=== PATIENT | female | born 2000 | race Caucasian/White ===

== ENCOUNTER 2022-07-28 18:43 | Emergency (ER) | payer OTHER, SELFPAY ==
[2022-07-28 18:52] VITALS: BP 133/78; PULSE 92; RESP 18; TEMP 36.6; O2SAT 99; BMI 28.8
[2022-07-28 19:17] LABS: COVID19 -Nasal RAPID Negative (Negative)
--- NOTE | 2022-07-28 19:32 | ED_ITS ---
HPI - Nausea/Vomiting/Diarrhea General Chief complaint: Nausea/Vomiting/Diarrhea Stated complaint: Fatigue, Nausea, Lightheaded, SOB, 2 days Time Seen by Provider: 07/28/22 19:09 Source: patient Mode of arrival: Ambulatory History of Present Illness HPI Narrative: Patient is an otherwise healthy 22-year-old female who is here for evaluation of 2 days of feeling fatigue, nausea but no vomiting, lightheaded, occasional shortness of breath. She did take a couple home tests and they were negative. She denies any chest pain, cough, sore throat, abdominal pain, or urinary symptoms. No skin changes. No ear pain. Has not tried anything for symptoms prior to arrival. Related Data Home Medications Medication Instructions Recorded Confirmed norethindrone acetate 0.5 1 tab PO DAILY 07/28/22 07/28/22 mg-ethinyl estradiol 2.5 mcg tablet Allergies Allergy/AdvReac Type Severity Reaction Status Date / Time No Known Drug Allergies Allergy Verified 07/28/22 18:58 Review of Systems Constitutional Constitutional: Denies fever(s) and Denies headache(s) ENT Ears, Nose, Mouth, and Throat: Reports system reviewed and no additional complaints, except as documented and Denies headache(s) Cardiovascular Cardiovascular: Reports system reviewed and no additional complaints, except as documented Respiratory Respiratory: Reports system reviewed and no additional complaints, except as documented Gastrointestinal Gastrointestinal: Reports system reviewed and no additional complaints, except as documented Genitourinary Genitourinary: Reports system reviewed and no additional complaints, except as d ocumented Integumentary/Breasts Skin/Breast: Reports system reviewed and no additional complaints, except as documented Neurologic Neurologic: Denies headache(s) Hematologic/Lymphatic On Anticoagulants: No Patient History Medical History Healthy adult Social History Smoking Status: Never smoker Smoking Status: Never smoker alcohol intake frequency: holidays/special occasions only Substance Use Type: does not use Exam Initial Vital Signs Initial Vital Signs: Vital Signs Temperature 98 F 07/28/22 18:52 Pulse Rate 92 H 07/28/22 18:52 Respiratory Rate 18 07/28/22 18:52 Blood Pressure 133/78 07/28/22 18:52 Pulse Oximetry 99 07/28/22 18:52 Oxygen Delivery Method 07/28/22 18:52 Const General: cooperative and comfortable HENMT Head: normal to inspection and normocephalic Ears: TM's normal bilaterally Throat: posterior oropharynx normal Neck Neck: normal visual inspection Resp Effort & Inspection: normal respiratory effort Auscultation: clear to auscultation bilaterally Cardio Rate: regular rate Rhythm: regular rhythm GI Inspection: normal to inspection Skin General: no rashes or lesions noted Neuro General: patient alert, patient awake, patient oriented x3 and moves all extremities Extrem General: normal to inspection Psych Appearance: grossly normal and well kempt Course Orders Ordered: ED Orders 07/28/22 18:59 COVID19 -Nasal RAPID/Pre-Proc Stat Vital Signs Vital signs: Vital Signs - 8 hr 07/28/22 18:52 Temperature 98 F Pulse Rate 92 H Respiratory Rate 18 Blood Pressure 133/78 Pulse Oximetry 99 Oxygen Delivery Method Room Air MDM - Nausea/Vomiting/Diarrhea Lab Data Labs: Lab Results 07/28/22 Range/Units 18:59 SARS-CoV-2 (PCR) Negative (Negative) MDM Narrative Medical decision making narrative: Patient is nontoxic appearing. COVID is negative. No other specific source of an infection noted. No indication for antibiotics. Provided reassurance to the patient. She was given return precautions. She expressed understanding. Discharge Plan Departure Patient Disposition: Home Clinical Impression: Fatigue Instructions: DI for Fatigue Activity Restrictions/Additional Instructions: Your COVID test today was negative. I do not have any indication of another type of an infection that would require any antibiotics. Recommend that you get good rest and eat and drink appropriately. Follow-up with your medical department. Prescriptions: No Action norethindrone ac-eth estradiol 0.5-2.5 mg-mcg Tablet 1 tab PO DAILY Referrals: ProviderGerardo [Primary Care Provider] - Visit Report Forms: Patient Portal/API
== END 2022-07-28 20:09 | disposition home or self-care (01) ==
PROVIDERS: Emergency Provider Emergency Medicine
DX: R53.83 Other fatigue (principal); Z20.822 Contact with and (suspected) exposure to COVID-19
CPT/HCPCS: 87635; 99281; 99282; C9803

== ENCOUNTER 2023-01-29 18:42 | Emergency (ER) | payer OTHER, SELFPAY ==
[2023-01-29] VITALS (8 sets, daily range): BP systolic 118–138; BP diastolic 57–79; PULSE 93–110; RESP 16; TEMP 38.4; O2SAT 96–98; BMI 28.8
--- NOTE | 2023-01-29 19:57 | DI.RAD.S_ITS ---
PROCEDURE: XR CHEST 1V INDICATIONS: suspected sepsis TECHNIQUE: One view of the chest was acquired. COMPARISON: None. FINDINGS: Surgical changes and devices: None. Lungs and pleura: Lungs are clear. No pleural effusions or pneumothorax. Mediastinum: Mediastinal contours appear normal. Heart size is normal. Bones and chest wall: No suspicious bony lesions. Overlying soft tissues appear unremarkable. IMPRESSION: 1. No acute cardiopulmonary disease. Dictated by: Rony Colón M.D. on 01/29/2023 at 20:50 Approved by: Rony Colón M.D. on 01/29/2023 at 20:50
[2023-01-29 20:44] LABS: Appearance Urine UA CLEAR; Bilirubin Urine UA NEGATIVE (NEGATIVE); Color Urine UA YELLOW; Glucose Urine UA NEGATIVE (Negative); Ketones Urine UA NEGATIVE (NEGATIVE); Leukocyte Esterase Urine UA NEGATIVE (NEGATIVE); Nitrite Urine UA NEGATIVE (Negative); Occult Blood Urine UA 3+ (Negative); Protein Urine UA 1+ (Negative); Specific Gravity Urine UA 1.025 (1.000-1.035)
[2023-01-29 20:51] LABS: INR 1.2 (0.9-1.3); Prothrombin Time 13.8 SECONDS (10.1-12.7)
[2023-01-29 20:54] LABS: PTT Partial Thromboplastin Tim 28 SECONDS (26-36)
[2023-01-29 20:58] LABS: Bacteria Urine Many (>30); Culture Indicated Urine Specimen Cultured; Mucus Urine 1+ (Negative); RBC Urine 5-10/HPF (0-5/HPF); Squamous Epithelial Cell Urine 1-5 /HPF (0-5/HPF); Transitional Epi Cells Urine 1-5/HPF (0-5/HPF); WBC Urine 5-10/HPF (0-5/HPF)
[2023-01-29 21:01] LABS: Add Manual Diff / Slide Review NO; Basophils Absolute Auto 0 /uL (0-100); Basophils Percent Auto 0.4 % (0-2); Eosinophils Absolute Auto 0 /uL (0-450); Eosinophils Percent Auto 0.3 % (2-4); Hematocrit 40.8 % (36-46); Hemoglobin 13.7 g/dL (12.0-16.0); Lymphocytes Absolute Auto 1000 /uL (1100-4500); Lymphocytes Percent Auto 7.5 % (25-40); Mean Corpuscular HGB Conc 33.4 % (30-36); Mean Corpuscular Hemoglobin 28.3 PG (26-34); Mean Corpuscular Volume 84.7 fL (80-100); Monocytes Absolute Auto 800 /uL (0-900); Monocytes Percent Auto 6.4 % (3-14); Neutrophils Absolute Auto 10900 /uL (1500-7000); Neutrophils Percent Auto 85.4 % (50-75); Platelet Count 214 X10^3/uL (150-400); Red Blood Cell Count 4.82 X10^6/uL (4.0-5.2); White Blood Cell Count 12.7 X10^3/uL (4.5-11.0)
[2023-01-29 21:11] LABS: Lactate (Lactic Acid) 1.1 mmol/L (0.7-2.1)
[2023-01-29 21:13] LABS: Alanine Aminotransferase 21 IU/L (<35); Albumin 4.7 g/dL (3.5-5.0); Albumin Globulin Ratio 1.4 (1.0-2.8); Alkaline Phosphatase 89 U/L (38-126); Aspartate Aminotransferase 24 IU/L (14-36); BUN Creatinine Ratio 12.7 (6-22); Bilirubin Total 0.6 mg/dL (0.2-1.3); Blood Urea Nitrogen 9 mg/dL (7-17); Calcium 8.9 mg/dL (8.4-10.2); Carbon Dioxide 22 mmol/L (22-32); Chloride 103 mmol/L (98-107); Estimated Glomerular Filt Rate > 60 mL/min (>60); Globulin 3.4 g/dL (1.7-4.1); Glucose 105 mg/dL (70-100); HEMOLYSIS < 15 (0-50); Lipase 65 U/L (23-300); Potassium 3.6 mmol/L (3.4-5.1); Sodium 137 mmol/L (137-145); Total Protein 8.1 g/dL (6.3-8.2)
[2023-01-29 21:28] LABS: Procalcitonin 0.19 ng/mL (<0.5)
[2023-01-29] MEDS: SODIUM CHLORIDE 0.9% 1,000 ML 1000 ML IV (21:57)
[2023-01-29] MEDS: ACETAMINOPHEN 325 MG TABLET 975 MG PO (22:36)
[2023-01-29] MEDS: IBUPROFEN 400 MG TABLET 800 MG PO (22:37)
--- NOTE | 2023-01-29 22:42 | DI.CT.S_ITS ---
PROCEDURE: CT ABDOMEN PELVIS W CON INDICATIONS: Generalized abdominal pain worse in right lower quadrant. TECHNIQUE: After the administration of IV contrast, axial sections were acquired from the lung bases to the pubic symphysis. Coronal and sagittal reformats were performed. For radiation dose reduction, the following was used: automated exposure control, adjustment of mA and/or kV according to patient size. COMPARISON: None. FINDINGS: Image quality: Excellent. Lung bases: Unremarkable. Heart: Heart is normal in size. ABDOMEN: Liver: No mass lesion. Gallbladder: Within normal limits without calcified gallstones. Biliary ducts: No biliary ductal dilatation. Pancreas: Unremarkable. Spleen: Normal in size. Adrenal Glands: No adrenal nodules. Kidneys and Ureters: No hydronephrosis. Stomach and Bowel: Stomach and small bowel loops are normal in caliber and wall thickness. The appendix is normal. There is mild segmental wall thickening of the ascending colon with associated pericolonic fat stranding consistent with a colitis. Peritoneum: There is a small amount of intraperitoneal free fluid in the pelvis which appears within physiologic limits. No free air. Ventral Wall: No hernia. Abdominal Nodes: No retroperitoneal or mesenteric adenopathy by size criteria. Vessels: Aorta and inferior vena cava are normal in size. PELVIS: Pelvic Organs: Unremarkable. Bladder: Unremarkable. Pelvic Nodes: No enlarged lymph nodes. Miscellaneous: No inguinal hernias are seen. Bones: Visualized osseous structures demonstrate no suspicious focal lesions. IMPRESSION: 1. Mild segmental wall thickening of the ascending colon with pericolonic fat stranding consistent with an infectious or inflammatory colitis. 2. No evidence of appendicitis. Dictated by: Rony Colón M.D. on 01/29/2023 at 23:52 Approved by: Rony Colón M.D. on 01/29/2023 at 23:54
--- NOTE | 2023-01-29 22:42 | ED.GENADULT ---
HPI - General Adult General Chief complaint: Fever Stated complaint: Abd pain, body aches, vomiting Diarrhea Time Seen by Provider: 01/29/23 21:58 Source: patient Mode of arrival: Ambulatory History of Present Illness HPI narrative: Patient is a 22-year-old female who for the past day or so has had abdominal pain and body aches and vomiting. She stated that she had diarrhea today. No urinary symptoms. 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 No other sick contacts. She states that after having an episode of diarrhea the abdominal pain did improve but then would come back again. Related Data Home Medications Medication Instructions Recorded Confirmed norethindrone acetate 0.5 1 tab PO DAILY 07/28/22 07/28/22 mg-ethinyl estradiol 2.5 mcg tablet Allergies Allergy/AdvReac Type Severity Reaction Status Date / Time No Known Drug Allergies Allergy Verified 07/28/22 18:58 Review of Systems Constitutional Constitutional: Reports system reviewed and no additional complaints, except as documented Cardiovascular Cardiovascular: Reports system reviewed and no additional complaints, except as documented Respiratory Respiratory: Reports system reviewed and no additional complaints, except as documented Gastrointestinal Gastrointestinal: Reports system reviewed and no additional complaints, except as documented Genitourinary Genitourinary: Reports system reviewed and no additional complaints, except as documented Integumentary/Breasts Skin/Breast: Reports system reviewed and no additional complaints, except as documented Patient History Medical History Healthy adult Social History Smoking Status: Never smoker Smoking Status: Never smoker alcohol intake frequency: holidays/special occasions only Substance Use Type: does not use Exam Initial Vital Signs Initial Vital Signs: Vital Signs Temperature 101.2 F H 01/29/23 19:51 Pulse Rate 110 H 01/29/23 19:51 Respiratory Rate 16 01/29/23 19:51 Blood Pressure 138/79 01/29/23 19:51 Pulse Oximetry 98 01/29/23 19:51 Oxygen Delivery Method Room Air 01/29/23 19:51 Course Orders Ordered: ED Orders 01/29/23 20:25 Complete Blood Count AUTO DIFF Stat Comprehensive Metabolic Panel Stat Lactate (Lactic Acid) Stat Lipase Stat PTT Partial Thromboplastin [place] Stat Procalcitonin Stat Prothrombin Time INR Stat 01/29/23 20:30 Respiratory Panel (Film Array) Stat 01/29/23 20:50 Test Urine Stat 01/29/23 21:10 Blood Culture Stat 01/29/23 22:42 CT abdomen pelvis w con Stat Discontinued Medications Acetaminophen (Acetaminophen 325 Mg Tablet) 975 mg PO NOW ONE Stop: 01/29/23 21:14 Last Admin: 01/29/23 22:36 Dose: 975 mg Documented By: SPF Sodium Chloride (Normal Saline 0.9%) 1,000 mls @ 1,000 mls/hr IV BOLUS ONE Stop: 01/29/23 20:55 Last Infusion: 01/29/23 23:43 Dose: 0 mls/hr Documented By: Admin: 01/29/23 21:57 Dose: 1,000 mls/hr Documented By: KAI Ibuprofen (Ibuprofen 400 Mg Tablet) 800 mg PO NOW ONE Stop: 01/29/23 21:14 Last Admin: 01/29/23 22:37 Dose: 800 mg Documented By: SPF Ondansetron HCl (Ondansetron 4 Mg Odt) 4 mg SL NOW PRN PRN Reason: Nausea And Vomiting Ondansetron HCl (Ondansetron 4 Mg/2 Ml Inj) 4 mg IV NOW PRN PRN Reason: Nausea And Vomiting Ondansetron HCl (Ondansetron 4 Mg Odt Prepack) 1 bottle MISC SEEINSTR ONE Stop: 01/30/23 00:06 Last Admin: 01/30/23 00:13 Dose: 1 bottle Documented By: ABRANM Vital Signs Vital signs: Vital Signs - 8 hr 01/29/23 21:49 01/29/23 22:00 01/29/23 22:14 Pulse Rate 106 H 101 H Blood Pressure 125/58 L Pulse Oximetry 98 96 Oxygen Delivery Method 01/29/23 22:14 01/29/23 22:30 01/29/23 23:00 Pulse Rate 100 H 99 H Blood Pressure 120/60 Pulse Oximetry 96 96 Oxygen Delivery Method Room Air 01/29/23 23:00 01/29/23 23:22 01/29/23 23:22 Pulse Rate 103 H 102 H Blood Pressure 119/62 Pulse Oximetry 97 97 Oxygen Delivery Method 01/29/23 23:30 01/29/23 23:30 01/30/23 00:00 Pulse Rate 93 H Blood Pressure 118/57 L 112/55 L Pulse Oximetry 97 Oxygen Delivery Method 01/30/23 00:00 Pulse Rate 97 H Blood Pressure Pulse Oximetry 97 Oxygen Delivery Method Medical Decision Making Lab Data Lab results reviewed: Yes I reviewed the patient's lab results. 01/29/23 20:25 01/29/23 20:25 Labs: Lab Results 01/29/23 01/29/23 01/29/23 Range/Units 20:00 20:25 20:25 WBC 12.7 H (4.5-11.0) X10^3/uL RBC 4.82 (4.0-5.2) X10^6/uL Hgb 13.7 (12.0-16.0) g/dL Hct 40.8 (36-46) % MCV 84.7 (80-100) fL MCH 28.3 (26-34) PG MCHC 33.4 (30-36) % RDW 14.0 (11.6-14.8) % Plt Count 214 (150-400) X10^3/uL Neut % (Auto) 85.4 H (50-75) % Lymph % (Auto) 7.5 L (25-40) % Logan % (Auto) 6.4 (3-14) % Eos % (Auto) 0.3 L (2-4) % Baso % (Auto) 0.4 (0-2) % Neut # (Auto) 72250 H (0801-1449) /uL Lymph # (Auto) 1000 L (9434-0941) /uL Logan # (Auto) 800 (0-900) /uL Eos # (Auto) 0 (0-450) /uL Baso # (Auto) 0 (0-100) /uL PT 13.8 H (10.1-12.7) SECONDS INR 1.2 (0.9-1.3) APTT 28 (26-36) SECONDS Sodium (137-145) mmol/L Potassium (3.4-5.1) mmol/L Chloride (98-107) mmol/L Carbon Dioxide (22-32) mmol/L BUN (7-17) mg/dL Creatinine (0.52-1.04) mg/dL Estimated GFR (>60) mL/min BUN/Creatinine Ratio (6-22) Glucose (70-100) mg/dL Lactate (0.7-2.1) mmol/L Calcium (8.4-10.2) mg/dL Total Bilirubin (0.2-1.3) mg/dL AST (14-36) IU/L ALT (<35) IU/L Alkaline Phosphatase (38-126) U/L Total Protein (6.3-8.2) g/dL Albumin (3.5-5.0) g/dL Globulin (1.7-4.1) g/dL Albumin/Globulin Ratio (1.0-2.8) Lipase (23-300) U/L Procalcitonin (<0.5) ng/mL Urine Color Yellow Urine Appearance Clear Urine pH 6.0 (4.5-8.0) Ur Specific [place] 1.025 (1.000-1.035) Urine Protein 1+ H (Negative) Urine Glucose (UA) Negative (Negative) g/dL Urine Ketones Negative (NEGATIVE) Urine Occult Blood 3+ H (Negative) Urine Nitrate Negative (Negative) Urine Bilirubin Negative (NEGATIVE) Urine Urobilinogen 1.0 (0.2) E.U./dL Ur Leukocyte Esterase Negative (NEGATIVE) Urine RBC 5-10/hpf H (0-5/HPF) Urine WBC 5-10/hpf H (0-5/HPF) Ur Squamous Epith Cells 1-5 /hpf (0-5/HPF) Ur Transition Epith Cell 1-5/hpf (0-5/HPF) Urine Bacteria Many (>30) H (None) Urine Mucus 1+ H (Negative) Ur Culture Indicated? Specimen cultured Urine Test (Negative) Chlamy pneumoniae PCR (Not Detect) Adenovirus (PCR) (Not Detect) B. pertussis DNA (PCR) (Not Detecte) B.parapertussis DNA PCR (Not Detecte) Coronavirus OC43 (PCR) (Not Detect) Coronavirus HKU1 (PCR) (Not Detect) Coronavirus 229E (PCR) (Not Detect) SARS-CoV-2 (PCR) (Not Detecte) Coronavirus NL63 (PCR) (Not Detect) Human Metapneumovir PCR (Not Detect) Influenza Type A (PCR) (Not Detect) Influenza Type B (PCR) (Not Detect) M. pneumoniae (PCR) (Not Detect) Parainfluenza 1 (PCR) (Not Detect) Parainfluenza 2 (PCR) (Not Detect) Parainfluenza 3 (PCR) (Not Detect) Parainfluenza 4 (PCR) (Not Detect) RSV (PCR) (Not Detect) Entero/Rhino (PCR) (Not Detect) 01/29/23 01/29/23 01/29/23 Range/Units 20:25 20:25 20:30 WBC (4.5-11.0) X10^3/uL RBC (4.0-5.2) X10^6/uL Hgb (12.0-16.0) g/dL Hct (36-46) % MCV (80-100) fL MCH (26-34) PG MCHC (30-36) % RDW (11.6-14.8) % Plt Count (150-400) X10^3/uL Neut % (Auto) (50-75) % Lymph % (Auto) (25-40) % Logan % (Auto) (3-14) % Eos % (Auto) (2-4) % Baso % (Auto) (0-2) % Neut # (Auto) (6367-9864) /uL Lymph # (Auto) (3440-9111) /uL Logan # (Auto) (0-900) /uL Eos # (Auto) (0-450) /uL Baso # (Auto) (0-100) /uL PT (10.1-12.7) SECONDS INR (0.9-1.3) APTT (26-36) SECONDS Sodium 137 (137-145) mmol/L Potassium 3.6 (3.4-5.1) mmol/L Chloride 103 (98-107) mmol/L Carbon Dioxide 22 (22-32) mmol/L BUN 9 (7-17) mg/dL Creatinine 0.71 (0.52-1.04) mg/dL Estimated GFR > 60 (>60) mL/min BUN/Creatinine Ratio 12.7 (6-22) Glucose 105 H (70-100) mg/dL Lactate 1.1 (0.7-2.1) mmol/L Calcium 8.9 (8.4-10.2) mg/dL Total Bilirubin 0.6 (0.2-1.3) mg/dL AST 24 (14-36) IU/L ALT 21 (<35) IU/L Alkaline Phosphatase 89 (38-126) U/L Total Protein 8.1 (6.3-8.2) g/dL Albumin 4.7 (3.5-5.0) g/dL Globulin 3.4 (1.7-4.1) g/dL Albumin/Globulin Ratio 1.4 (1.0-2.8) Lipase 65 (23-300) U/L Procalcitonin 0.19 (<0.5) ng/mL Urine Color Urine Appearance Urine pH (4.5-8.0) Ur Specific [place] (1.000-1.035) Urine Protein (Negative) Urine Glucose (UA) (Negative) g/dL Urine Ketones (NEGATIVE) Urine Occult Blood (Negative) Urine Nitrate (Negative) Urine Bilirubin (NEGATIVE) Urine Urobilinogen (0.2) E.U./dL Ur Leukocyte Esterase (NEGATIVE) Urine RBC (0-5/HPF) Urine WBC (0-5/HPF) Ur Squamous Epith Cells (0-5/HPF) Ur Transition Epith Cell (0-5/HPF) Urine Bacteria (None) Urine Mucus (Negative) Ur Culture Indicated? Urine Test (Negative) Chlamy pneumoniae PCR Not detected (Not Detect) Adenovirus (PCR) Not detected (Not Detect) B. pertussis DNA (PCR) Not detected (Not Detecte) B.parapertussis DNA PCR Not detected (Not Detecte) Coronavirus OC43 (PCR) Not detected (Not Detect) Coronavirus HKU1 (PCR) Not detected (Not Detect) Coronavirus 229E (PCR) Not detected (Not Detect) SARS-CoV-2 (PCR) Not detected (Not Detecte) Coronavirus NL63 (PCR) Not detected (Not Detect) Human Metapneumovir PCR Not detected (Not Detect) Influenza Type A (PCR) Not detected (Not Detect) Influenza Type B (PCR) Not detected (Not Detect) M. pneumoniae (PCR) Not detected (Not Detect) Parainfluenza 1 (PCR) Not detected (Not Detect) Parainfluenza 2 (PCR) Not detected (Not Detect) Parainfluenza 3 (PCR) Not detected (Not Detect) Parainfluenza 4 (PCR) Not detected (Not Detect) RSV (PCR) Not detected (Not Detect) Entero/Rhino (PCR) Not detected (Not Detect) 04/25/23 Range/Units 20:50 WBC (4.5-11.0) X10^3/uL RBC (4.0-5.2) X10^6/uL Hgb (12.0-16.0) g/dL Hct (36-46) % MCV (80-100) fL MCH (26-34) PG MCHC (30-36) % RDW (11.6-14.8) % Plt Count (150-400) X10^3/uL Neut % (Auto) (50-75) % Lymph % (Auto) (25-40) % Logan % (Auto) (3-14) % Eos % (Auto) (2-4) % Baso % (Auto) (0-2) % Neut # (Auto) (7958-1543) /uL Lymph # (Auto) (3386-1954) /uL Logan # (Auto) (0-900) /uL Eos # (Auto) (0-450) /uL Baso # (Auto) (0-100) /uL PT (10.1-12.7) SECONDS INR (0.9-1.3) APTT (26-36) SECONDS Sodium (137-145) mmol/L Potassium (3.4-5.1) mmol/L Chloride (98-107) mmol/L Carbon Dioxide (22-32) mmol/L BUN (7-17) mg/dL Creatinine (0.52-1.04) mg/dL Estimated GFR (>60) mL/min BUN/Creatinine Ratio (6-22) Glucose (70-100) mg/dL Lactate (0.7-2.1) mmol/L Calcium (8.4-10.2) mg/dL Total Bilirubin (0.2-1.3) mg/dL AST (14-36) IU/L ALT (<35) IU/L Alkaline Phosphatase (38-126) U/L Total Protein (6.3-8.2) g/dL Albumin (3.5-5.0) g/dL Globulin (1.7-4.1) g/dL Albumin/Globulin Ratio (1.0-2.8) Lipase (23-300) U/L Procalcitonin (<0.5) ng/mL Urine Color Urine Appearance Urine pH (4.5-8.0) Ur Specific [place] (1.000-1.035) Urine Protein (Negative) Urine Glucose (UA) (Negative) g/dL Urine Ketones (NEGATIVE) Urine Occult Blood (Negative) Urine Nitrate (Negative) Urine Bilirubin (NEGATIVE) Urine Urobilinogen (0.2) E.U./dL Ur Leukocyte Esterase (NEGATIVE) Urine RBC (0-5/HPF) Urine WBC (0-5/HPF) Ur Squamous Epith Cells (0-5/HPF) Ur Transition Epith Cell (0-5/HPF) Urine Bacteria (None) Urine Mucus (Negative) Ur Culture Indicated? Urine Test Negative (Negative) Chlamy pneumoniae PCR (Not Detect) Adenovirus (PCR) (Not Detect) B. pertussis DNA (PCR) (Not Detecte) B.parapertussis DNA PCR (Not Detecte) Coronavirus OC43 (PCR) (Not Detect) Coronavirus HKU1 (PCR) (Not Detect) Coronavirus 229E (PCR) (Not Detect) SARS-CoV-2 (PCR) (Not Detecte) Coronavirus NL63 (PCR) (Not Detect) Human Metapneumovir PCR (Not Detect) Influenza Type A (PCR) (Not Detect) Influenza Type B (PCR) (Not Detect) M. pneumoniae (PCR) (Not Detect) Parainfluenza 1 (PCR) (Not Detect) Parainfluenza 2 (PCR) (Not Detect) Parainfluenza 3 (PCR) (Not Detect) Parainfluenza 4 (PCR) (Not Detect) RSV (PCR) (Not Detect) Entero/Rhino (PCR) (Not Detect) Imaging Data Chest x-ray: Radiologist's Impression: PROCEDURE:? XR CHEST 1V ? INDICATIONS:? suspected sepsis ? TECHNIQUE:? One view of the chest was acquired.? ? COMPARISON:? None. ? FINDINGS:? ? Surgical changes and devices:? None.? ? Lungs and pleura:? Lungs are clear.? No pleural effusions or pneumothorax.? ? Mediastinum:? Mediastinal contours appear normal.? Heart size is normal.? ? Bones and chest wall:? No suspicious bony lesions.? Overlying soft tissues appear unremarkable.? ? IMPRESSION:? ? 1.? No acute cardiopulmonary disease. CT scan - abdomen/pelvis: Radiologist's Impression: PROCEDURE:? CT ABDOMEN PELVIS W CON ? INDICATIONS:? Generalized abdominal pain worse in right lower quadrant. ? TECHNIQUE:? After the administration of IV contrast, axial sections were acquired from the lung bases to the pubic symphysis.? Coronal and sagittal reformats were performed.? For radiation dose reduction, the following was used:? automated exposure control, adjustment of mA and/or kV according to patient size. ? COMPARISON:? None. ? FINDINGS:? Image quality:? Excellent.? ? Lung bases:? Unremarkable.? ? Heart:? Heart is normal in size. ? ? ABDOMEN: Liver:? No mass lesion. Gallbladder:? Within normal limits without calcified gallstones.? ? Biliary ducts:? No biliary ductal dilatation.? ? Pancreas:? Unremarkable.? ? Spleen:? Normal in size.? ? Adrenal Glands:? No adrenal nodules.? ? Kidneys and Ureters:? No hydronephrosis.? ? ? Stomach and Bowel:? Stomach and small bowel loops are normal in caliber and wall thickness.? The appendix is normal.? There is mild segmental wall thickening of the ascending colon with associated pericolonic fat stranding consistent with a colitis.? Peritoneum:? There is a small amount of intraperitoneal free fluid in the pelvis which appears within physiologic limits.? No free air.? ? Ventral Wall: ? No hernia.? Abdominal Nodes:? No retroperitoneal or mesenteric adenopathy by size criteria.? Vessels:? Aorta and inferior vena cava are normal in size.? ? PELVIS: Pelvic Organs:? Unremarkable.? ? Bladder:? Unremarkable.? ? Pelvic Nodes: No enlarged lymph nodes.? Miscellaneous: No inguinal hernias are seen. ? ? ? Bones:? Visualized osseous structures demonstrate no suspicious focal lesions. ? IMPRESSION:? ? 1. Mild segmental wall thickening of the ascending colon with pericolonic fat stranding consistent with an infectious or inflammatory colitis. ? 2. No evidence of appendicitis. MDM Narrative Medical decision making narrative: And discussion with the patient and her who is at bedside. We discussed her presentation today. She does have a leukocytosis. Informed her that her presentation could be anything from just an acute GI illness that would be better on its own to other intra-abdominal issues such as diverticulitis or appendicitis. We did discuss 2 options to include obtaining a CT scan versus waiting to see if her symptoms worsen. She states she is leaving to go on vacation tomorrow so we decided to obtain a CT scan which subsequently showed no signs of an acute surgical issue. We did discuss the findings of the colitis. Would not be surprised if she continues to have some diarrhea and fevers. No indication for antibiotics. She was given return precautions. She expressed understanding and agreement. Discharge Plan Departure Patient Disposition: Home Clinical Impression: Colitis Instructions: DI for Colitis Activity Restrictions/Additional Instructions: I do recommend that you stay hydrated. You can use the nausea medication as needed. There was a urine culture pending at the time of discharge and we will contact you if we need to start you on any antibiotics. Return to the emergency department for new or worsening symptoms. Prescriptions: No Action norethindrone ac-eth estradiol 0.5-2.5 mg-mcg Tablet 1 tab PO DAILY Referrals: ProviderGerardo [Primary Care Provider] - Stand Alone Forms: Patient Portal/API
[2023-01-29 23:07] LABS: Pregnancy Test Urine Negative (Negative)
[2023-01-29 23:15] LABS: Adenovirus Not Detected (Not Detect); B. parapertussis Not Detected (Not Detecte); Bordetella pertussis Not Detected (Not Detecte); Chlamydophila pneumoniae Not Detected (Not Detect); Coronavirus 229E Not Detected (Not Detect); Coronavirus HKU1 Not Detected (Not Detect); Coronavirus NL 63 Not Detected (Not Detect); Coronavirus OC43 Not Detected (Not Detect); Human Metapneumovirus Not Detected (Not Detect); Human Rhinovirus/Enterovirus Not Detected (Not Detect); Influenza A Not Detected (Not Detect); Influenza B Not Detected (Not Detect); Mycoplasma pneumoniae Not Detected (Not Detect); Parainfluenza Virus 1 Not Detected (Not Detect); Parainfluenza Virus 2 Not Detected (Not Detect); Parainfluenza Virus 3 Not Detected (Not Detect); Parainfluenza Virus 4 Not Detected (Not Detect); Respiratory Syncytial Virus Not Detected (Not Detect); SARS- CoV-2 Not Detected (Not Detecte)
[2023-01-30] VITALS: BP 112/55; PULSE 97; O2SAT 97
[2023-01-30] MEDS: ONDANSETRON 4 MG ODT PREPACK 1 BOTTLE MISC (00:13)
== END 2023-01-30 00:23 | disposition home or self-care (01) ==
PROVIDERS: Emergency Provider Emergency Medicine
DX: K52.9 Noninfective gastroenteritis and colitis, unspecified (principal); R10.84 Generalized abdominal pain
CPT/HCPCS: 36415; 71045; 74177; 80053; 81001; 81025; 83605; 83690; 84145; 85025; 85610; 85730; 87040; 87077; 87086; 87186; 87633; 96360; 96361; 99284; Q9967

== ENCOUNTER → 2023-09-18 12:36 | Outpatient (CLI) | payer OTHER, SELFPAY ==
[2023-09-18 14:17] LABS: Hemoglobin A1C% w Est Avg Glu 5.2 % (4.0-6.0)
[2023-09-18 14:38] LABS: Free T4, Direct Thyroxine 1.06 ng/dL (0.78-2.19)
[2023-09-18 14:52] LABS: Appearance Urine UA CLEAR; Bilirubin Urine UA NEGATIVE (NEGATIVE); Color Urine UA YELLOW; Glucose Urine UA NEGATIVE (Negative); Ketones Urine UA NEGATIVE (NEGATIVE); Leukocyte Esterase Urine UA NEGATIVE (NEGATIVE); Nitrite Urine UA NEGATIVE (Negative); Occult Blood Urine UA NEGATIVE (Negative); Protein Urine UA NEGATIVE (Negative); Specific Gravity Urine UA <=1.005 (1.000-1.035); Urobilinogen Urine UA 0.2 E.U./dL (0.2)
[2023-09-18 14:54] LABS: pH Urine UA 5.5 (4.5-8.0)
[2023-09-18 14:59] LABS: Bacteria Urine Occasional (0-1); Culture Indicated Urine Specimen Cultured; RBC Urine 0-1/HPF (0-5/HPF); Squamous Epithelial Cell Urine 0-1 /HPF (0-5/HPF); WBC Urine 0-1/HPF (0-5/HPF)
[2023-09-19 08:01] LABS: RPR Screen Non Reactive (Non Reactive)
[2023-09-19 08:09] LABS: Hepatitis B Core AB w/Reflex Negative (Negative)
[2023-09-19 12:11] LABS: Var-Zoster Immunity Screen 284 index (Immune >165)
[2023-09-19 16:58] LABS: Rubella Antibody IgG 17.5 IU/mL (>15)
[2023-09-19 17:19] LABS: HIV 1 & 2 Ab/Ag 4th Gen Combo NEGATIVE (NEGATIVE); Hep C Virus Ab w/Reflex Quant NEGATIVE s/c (NEGATIVE)
== END ==
PROVIDERS: Referring Provider Advanced Practice Midwife; Visit Provider Advanced Practice Midwife
DX: Z34.01 Encounter for supervision of normal first pregnancy, first trimester (principal)
CPT/HCPCS: 36415; 81001; 83036; 84439; 84443; 86592; 86704; 86762; 86787; 86803; 86850; 86900; 86901; 87086; 87389

== ENCOUNTER → 2023-11-11 15:18 | Outpatient (CLI) | payer OTHER, SELFPAY ==
--- NOTE | 2023-11-11 | DI.US.S_ITS ---
PROCEDURE: US OB >= 14 WEEKS FETUS INDICATIONS: ANATOMY OUTSIDE/PRIOR DATING DATA: Last menstrual period (LMP): 07/01/2023. LMP-based estimated date of delivery (TOMER): 04 06 2024. First dating scan (date and location): 11/11/2023. Estimated date of delivery (TOMER) from first dating scan: 04/02/2024. The calculations are made using the clinical TOMER of 04/06/2024. TECHNIQUE: Real-time scanning was performed of the fetus, with image documentation and biometric measurements. Endovaginal scanning: None COMPARISON: None. FINDINGS: General: A single living intrauterine gestation is present. Presentation: Vertex. Placenta: Placental position is anterior , without previa. Amniotic fluid index: 15.5 cm, normal range is 5-24 cm. Single deepest vertical pocket is 4.6 cm. heart rate: 162 beats per minute. Maternal cervical canal: 4.4 cm long. Normal lower limit is 2.5 cm. biometrics: Biparietal diameter: 4.5 cm, 19 week 4 day Head circumference: 16.7 cm, 19 week 3 day Abdominal circumference: 14.9 cm, 20 week 1 day Femur length: 3.0 cm, 19 week 2 day Clinically estimated gestational age: 19 week 0 day Composite gestational age from present scan: 19 week 4 day Estimated weight and percentile: 309 g, 85th percentile Anatomic survey: Neuro: Ventricles are non-dilated at less than 10 mm. Cisterna magna is normal at 3-11 mm. Cerebellum is normal in size and morphology. Nuchal skin fold: Normal at less than 6 mm between 14-21 weeks gestational age. Face: Nose and lips, facial profile are normal. Spine: No evidence for spina bifida. Heart: 4-chambered heart is present, with normal ventricular outflow tracts. Diaphragm: Diaphragm is intact. Stomach: Left-sided stomach is present. Kidneys: No hydronephrosis. Normal is less than 5 mm in 2nd trimester, less than 7 mm in 3rd trimester. Cord: 3-vessel cord has orthotopic insertion. Bladder: Normal in size. Extremities: All 4 extremities identified. IMPRESSION: Single live intrauterine consistent with a 19 week 4 day by current ultrasound Approved by: Davin Winston M.D. on 11/11/2023 at 18:01
== END ==
PROVIDERS: Referring Provider Nurse Practitioner Obstetrics & Gynecology; Visit Provider Nurse Practitioner Obstetrics & Gynecology
DX: Z34.02 Encounter for supervision of normal first pregnancy, second trimester (principal); Z3A.19 19 weeks gestation of pregnancy
CPT/HCPCS: 76811

== ENCOUNTER 2024-04-15 12:17 | Inpatient (IN) | payer OTHER, SELFPAY ==
--- NOTE | 2024-04-15 12:36 | P.HPOB_ITS ---
OB HPI Date/Time Date of admission: 04/15/24 Date Patient Seen: 04/15/24 Time Patient Seen: 12:30 History of Present Condition Chief complaint: Labor of late term nullip : 1 Para: 0 Estimated Date of Delivery: 04/06/24 Estimated Gestational Age (weeks): 41.2 Narrative: Sarkis Jacobs is a 23 year old female at 41 weeks 2 days by sure LMP of 07/01/2023 and concordant with 7 week ultrasound. Here for labor admission. She began real consistently overnight and noticed increased cervical discharge. She presented to [facility] this AM at 1030 for NST and cervical exam. She ruptured spontaneously in office at 1115, immediately after reactive NST, and cervical exam was /-1. Nitrizine paper positive and copious clear fluid noted on exam. Her care with CNMs was uncomplicated. Desired unmedicated, low intervention , declines IV access. Accompanied by her mom and . History of Present care: good care, initiated at week # (9), number of visits (15) and pounds weight gain (31) Dating criteria: LMP confirmed by 1st trimester US Ultrasounds: normal 1st trimester US and normal mid trimester US Obstetrical complications: none Medical complications: none Preadmission Labs Blood type: A (+) positive -: Antibody screen: negative, Cystic fibrosis screen: negative, GBS status: negative, HBsAG: negative, HIV: negative, HSV 1: unknown (Not screened), HSV 2: unknown (Not screened) and RPR/VDLR: negative -: Chlamydia screen: not detected and Gonorrhea screen: not detected -: Rubella: immune and Varicella: immune HCT: 33.7 HCAB: negative Cell-free DNA: Negative 1 hr GTT: 135 Narrative: Has not received first pap smear yet d/t age 22 at initiation of care. Prior (ies) History: Evaluation Evaluation Baseline heart rate: 140 Variability: Moderate (11-25) monitor accelerations: Present Monitor Decelerations: Absent Contraction Frequency (minutes): 6 Uterine Contraction Intensity: Moderate Category of Tracing: Reactive Comments: CE deferred, completed in clinic immediately prior to arrival [facility] Medical History (Updated 09/03/23 @ 10:08 by Bebe Nguyen RN) Heart murmur Ocular migraine Colitis Healthy adult Surgical History No pertinent past surgical history Family History Father Thyroid cancer Mother Chronic leukopenia Grandmother Diabetes mellitus Aunt Diabetes mellitus Grandmother Depression Social History marital status: number of children: 0 household members: spouse lives independently: Yes caregiver/support person: No housing: condominium pets and animals: Yes (cat, managing litter box) education level: high school occupational status: employed (active duty) current occupational exposures/hazards: No (no longer flying, no Hazmat duties since ) farideh/druze: [employer] special farideh needs: No travel history: recent ([place]) seatbelt use: always water heater temp set < 120 deg: Yes working smoke detector in home: Yes fire extinguisher in home: Yes carbon monox detector in home: Yes firearms in home: No do you feel safe at home: Yes Smoking Status: Never smoker second hand exposure: No alcohol intake: former (occasionally when not ) substance use type: does not use during the past year weight has: increased > 10 lbs well-balanced diet: about half the time daily servings fruits/ve-4 (mostly fruit, very little vegetables) caffeine: Yes (aware of 200mg limit) Type(s) of exercise: walking and weight lifting Meds Home Medications and Allergies Allergies Allergy/AdvReac Type Severity Reaction Status Date / Time No Known Drug Allergies Allergy Verified 09/03/23 10:03 Review of Systems Review of Systems ROS: Yes All systems reviewed with the patient and are negative except as otherwise documented OB Exam Vital signs Blood Pressure: 125/73 Pulse Rate: 94 Temperature: 98.1 F Resp Effort & Inspection: normal respiratory effort and able to speak in complete sentences Auscultation: clear to auscultation bilaterally Cardio Rate: regular rate Rhythm: regular rhythm Presentation: vertex Amniotic Fluid: clear Objective Labs 04/15/24 12:46 Assessment and Plan Assessment and Plan Assessment and Plan narrative: Assessment: Late term nullipara Early labor, Coping well Antibiotics not indicated SROM x2 hours without sx of infection FHR Category I Plan: Admit to labor unit, routine orders. Expectant management with intermittent monitoring. Labor support, PRN. Reassess in 4-6 hours or sooner, as needed. Time-Based Coding :: [TOTAL MINUTES] spent with patient and on the chart (including review of chart, obtaining history, exam, reviewing outside data, placing orders, documenting exam and treatment plan, and counseling patient) on [DATE].
[2024-04-15 13:30] VITALS: BP 125/73
[2024-04-15 13:31] VITALS: BP 125/73; PULSE 94; TEMP 36.7
[2024-04-15 13:47] LABS: Add Manual Diff / Slide Review NO; Basophils Absolute Auto 0 /uL (0-100); Basophils Percent Auto 0.1 % (0-2); Eosinophils Absolute Auto 100 /uL (0-450); Eosinophils Percent Auto 0.6 % (2-4); Hematocrit 37.6 % (36-46); Hemoglobin 12.2 g/dL (12.0-16.0); Lymphocytes Absolute Auto 1400 /uL (1100-4500); Lymphocytes Percent Auto 11.6 % (25-40); Mean Corpuscular HGB Conc 32.5 % (30-36); Mean Corpuscular Hemoglobin 28.2 PG (26-34); Mean Corpuscular Volume 86.7 fL (80-100); Monocytes Absolute Auto 700 /uL (0-900); Neutrophils Absolute Auto 9900 /uL (1500-7000); Neutrophils Percent Auto 81.7 % (50-75); Platelet Count 194 X10^3/uL (150-400); Red Blood Cell Count 4.34 X10^6/uL (4.0-5.2); White Blood Cell Count 12.1 X10^3/uL (4.5-11.0)
--- NOTE | 2024-04-15 16:48 | P.PCN_ITS ---
[facility] <Noah Chen MD - Last Filed: 04/15/24 16:54> Pre-procedure Procedure: Continuous Lumbar Epidural for L&D Attending OB provider: Joceline Ellis PM/ROS narrative: 23yo full term in labor requesting epidural. see pre anes evaluation for further details. ASA Class: III Labs: Hct 37.6 % (36-46) 04/15/24 12:46 Plt Count 194 X10^3/uL (150-400) 04/15/24 12:46 Medications: Current Medications Generic Name Dose Route Start Last Admin Trade Name Freq PRN Reason Stop Dose Admin Calcium Carbonate 1,000 mg 04/15/24 12:33 Calcium Carbonate 500 Mg Tab PO Q4HR PRN Dyspepsia Carboprost Tromethamine 250 mcg 04/15/24 12:28 Carboprost 250 Mcg/Ml Ampul IM Q90M PRN Bleeding Fentanyl 100 mcg 04/15/24 12:28 Fentanyl 100 Mcg/2 Ml Inj IV Q1H PRN Pain, Severe (7-10) Oxytocin/Lactated Ringer's 30 unit in 500 mls @ 200 mls/hr 04/15/24 12:28 Oxytocin Premix IV CONT PRN Bleeding Protocol Tranexamic Acid 1,000 mg/ 100 mls @ 600 mls/hr 04/15/24 12:28 Sodium Chloride IV NOW PRN Bleeding Lactated Ringer's 1,000 mls @ 100 mls/hr 04/15/24 12:30 Lactated Ringers IV CONT CHELITA Lidocaine HCl 20 ml 04/15/24 12:28 Lidocaine 1% 20 Ml INJ INTRA-OP PRN Post Delivery Methylergonovine Maleate 0.2 mg 04/15/24 12:28 Methylergonovine 0.2 Mg Tablet PO Q6HR PRN Heavy Bleeding Methylergonovine Maleate 0.2 mg 04/15/24 12:28 Methylergonovine 0.2 Mg/Ml Vial IM NOW PRN Bleeding Misoprostol 800 mcg 04/15/24 12:28 Misoprostol 200 Mcg Tablet CO NOW PRN Bleeding Misoprostol 400 mcg 04/15/24 12:28 Misoprostol 200 Mcg Tablet SL NOW PRN Bleeding Naloxone HCl 0.2 mg 04/15/24 12:28 Naloxone 0.4 Mg/Ml Vial IV Q2MIN PRN Opiate Reversal Oxytocin 10 unit 04/15/24 12:28 Oxytocin 10 Unit/Ml Vial IM NOW PRN Bleeding Allergies: Allergies Allergy/AdvReac Type Severity Reaction Status Date / Time No Known Drug Allergies Allergy Verified 09/03/23 10:03 Procedure Insertion date: 04/15/24 Insertion time: 16:21 Prep/Local: betadine x3 (chloraprep) and 1% lidocaine Patient position: sitting Needle: 18 gauge Hustead Loss of resistance with: saline BETO at (cm): 7 Catheter placed at SKIN (cm): 15 Catheter in SPACE (cm): 8 Insertion: No CSF, No Blood, No Paresthesia with insertion, No Paresthesia with injection and No Test dose reaction Initial Medications TEST DOSE time: 16:22 BOLUS DOSE time: 16:19 BOLUS DOSE (mL): 8 BOLUS DOSE med: other (2% lidocaine) Infusion INFUSION: 0.125% bupivacaine and with fentanyl 2 mcg/mL Initial rate (mL/hr): 8 Post-procedure Anesthesia date START: 04/15/24 Anesthesia time START: 16:11 <Briana Roman CRNA - Last Filed: 04/16/24 03:54> Pre-procedure --: 2145-Bolus dose of 5cc of infusion(bupiv + fent) and infusion increased to 12cc/hr Post-procedure Anesthesia date END: 04/16/24 Anesthesia time END: 01:49 Post-procedure Anesthesia Assessment: Yes CV function: HR/BP stable, Yes Resp function: RR/sat/airway adequate, Yes Post-op hydration adequate, Yes Pain control adequate, Yes Nausea & vomiting absent, Yes Temperature > 36 C and Yes M ental status appropriate
--- NOTE | 2024-04-15 17:03 | PM.OBPNLAB ---
Date/Time Date Patient Seen: 04/15/24 Time Patient Seen: 17:03 Pain Control Pain control: epidural Comments: At 1530 Sarkis was working hard through contractions and using nitrous oxide. She requested a cervical exam which was /-1, at which time she requested an epidural. Sarkis received the epidural at approximately 1630 and is feeling good relief. She plans to rest now. Vital signs BP: 111/55 HR: 99 SPO2: 97% Temp: 36.8 C Pelvic Exam Dilation (cm): 6 Effacement (%): 80 station: -1 Amniotic membrane status: Ruptured Comments: SROM @1115 Clear fluid noted CE unchanged Contractions Date/Time contractions began: 04/14 2100 Contractions on admission: regular Monitor mode: External Contraction frequency (min): 4 (q4-9 minutes) Contraction duration (min): 1 (60-80 seconds) Contraction pattern: Regular Contraction intensity: Moderate Status status: Category l Heart Rate Baseline: 135 Monitor Accelerations: Absent Monitor Decelerations: Absent Monitor Variability: Moderate Assessment and Plan Assessment: active labor Plan: continuous present management Comments: Assessment: Late term nullipara Active labor Adequate epidural anesthesia SROM x6 hours without sx of infection FHR Category I Plan: Continue expectant management Encourage rest and position changes Reassess in 4 hours or sooner PRN
[2024-04-15] MEDS: ONDANSETRON 4 MG/2 ML INJ IV (17:06)
--- NOTE | 2024-04-15 20:03 | PM.OBPNLAB ---
Date/Time Date Patient Seen: 04/15/24 Time Patient Seen: 20:03 Pain Control Pain control: epidural Comments: At approx. 1945 Sarkis reported increased pressure in her butt and requested a cervical exam. She is also feeling increased sensation with her epidural compared to earlier but says that it is manageable. Has been changing positions frequently. Mother and remain supportive at her side. Vitals BP: 107/60 HR: 90 bpm SPO2: 94% Temp: 38.2 C Pelvic Exam Dilation (cm): 7 Effacement (%): 80 station: 0 Amniotic membrane status: Ruptured Comments: SROM @ 1115 Clear fluid on exam Contractions Monitor mode: External Contraction frequency (min): 5 (q2-5 minutes) Contraction duration (min): 1 Contraction pattern: Regular Contraction intensity: Moderate Status status: Category l Heart Rate Baseline: 125 Monitor Accelerations: Present Monitor Decelerations: Absent Monitor Variability: Moderate Assessment and Plan Assessment: active labor Plan: continuous present management Comments: Assessment: Active labor SROM x 9 hours, no signs of infection Adequate epidural FHR Category I Plan: Continue expectant management Encourage rest and position changes Encouraged use of PCEA Reassess in 4 hours or sooner PRN
[2024-04-15 21:26] LABS: Add Manual Diff / Slide Review NO; Basophils Absolute Auto 100 /uL (0-100); Basophils Percent Auto 0.5 % (0-2); Eosinophils Absolute Auto 0 /uL (0-450); Eosinophils Percent Auto 0.1 % (2-4); Hematocrit 36.6 % (36-46); Hemoglobin 12.1 g/dL (12.0-16.0); Lymphocytes Absolute Auto 1200 /uL (1100-4500); Lymphocytes Percent Auto 8.4 % (25-40); Mean Corpuscular Hemoglobin 28.5 PG (26-34); Mean Corpuscular Volume 86.3 fL (80-100); Monocytes Absolute Auto 900 /uL (0-900); Monocytes Percent Auto 6.3 % (3-14); Neutrophils Absolute Auto 12400 /uL (1500-7000); Neutrophils Percent Auto 84.7 % (50-75); Platelet Count 166 X10^3/uL (150-400); Red Blood Cell Count 4.24 X10^6/uL (4.0-5.2); White Blood Cell Count 14.7 X10^3/uL (4.5-11.0)
[2024-04-15] MEDS: ACETAMINOPHEN IV 1,000 MG/100 ML VIAL 400 MG IV (21:31)
--- NOTE | 2024-04-15 21:43 | PM.OBPNLAB ---
Date/Time Date Patient Seen: 04/15/24 Time Patient Seen: 09:15 Pain Control Pain control: epidural Comments: Sarkis had a temperature of 100.1 F at 2030 and 101 F at 2100 despite standard cooling methods. Her epidural is not adequately treating her pain and she is requesting anesthesia consult. , Esequiel, and mother still supportive at bedside. Pelvic Exam Dilation (cm): 7 Effacement (%): 80 station: 0 Amniotic membrane status: Ruptured Comments: CE deferred. Next CE at 0000. Contractions Monitor mode: External Contraction frequency (min): 3 (q2-3 minutes) Contraction duration (min): 1 (1-1.5) Contraction pattern: Regular Contraction intensity: Moderate Status status: Category l Heart Rate Baseline: 150 Monitor Accelerations: Absent Monitor Decelerations: Absent Monitor Variability: Moderate Assessment and Plan Assessment: active labor Plan: continuous present management Comments: Assessment: Active labor SROM x 10.5 hours, with intrapartum fever and increasing WBC Inadequate epidural anesthesia FHR Category I Plan: Initiate IV tylenol for treatment of fever Initiate IV antibiotics Anesthesia consult Encourage rest and position changes CE at 0000 or sooner PRN
[2024-04-15] MEDS: FENT 2MCG/ML BUPIV 0.125% EPI 200 MCG/100 ML PLAST..BAG 8 MCG EPIDURAL (21:47)
[2024-04-15] MEDS: AMPICILLIN 2,000 MG in SODIUM CHLORIDE 0.9% 100 ML 200 MG IV (22:07)
[2024-04-15] MEDS: GENTAMICIN 430 MG in SODIUM CHLORIDE 0.9% 100 ML 110.75 MG IV (22:52)
--- NOTE | 2024-04-15 23:39 | PM.OBPNLAB ---
Date/Time Date Patient Seen: 04/15/24 Time Patient Seen: 23:00 Pain Control Pain control: epidural Pelvic Exam Dilation (cm): 10 Effacement (%): 100 station: +1 Amniotic membrane status: Ruptured Contractions Monitor mode: External Contraction frequency (min): 3 (q2-3 minutes) Contraction pattern: Regular Contraction intensity: Moderate Status status: Category l Heart Rate Baseline: 150 Monitor Accelerations: Present Monitor Decelerations: Absent Monitor Variability: Moderate Assessment and Plan Assessment: active labor Plan: continuous present management Comments: at 41w2d in 2nd stage labor. Suspected III, being treated with antibiotics (ampicillin and gentamycin). Continuous monitoring. GBS neg Begin pushing and anticipate NSVB.
[2024-04-16] MEDS: OXYTOCIN 10 UNIT/ML VIAL IM (02:00)
[2024-04-16] MEDS: ACETAMINOPHEN IV 1,000 MG/100 ML VIAL 400 MG IV (02:34)
[2024-04-16] MEDS: LIDOCAINE 1% 20 ML INJ (02:34)
[2024-04-16] MEDS: TRANEXAMIC ACID 1,000 MG in SODIUM CHLORIDE 0.9% 100 ML 600 MG IV (03:17)
--- NOTE | 2024-04-16 03:44 | P.PCNOB_ITS ---
<[place] Shaffer CNM, MIS - Last Filed: 04/19/24 22:00> Labor & Delivery Delivery date: 04/16/24 Intrapartal Events: Prolonged 2nd Stage > 2.5 hours and Chorioamnionitis Delivery monitor: external uterine Route of delivery: L&D Laceration Description: Periurethral - 2nd Degree Delivery repair: vicryl Quantitative Blood Loss: 607 Anesthesia Type: Epidural Narrative: Labor progressed well and Sarkis requested an exam because she was feeling tons of pressure and was found to be complete. At that time, ampicillin antibiotic was completed and gentamycin was running due to suspected intraamniotic infection. She began pushing at 2306. FHR was Cat 1 throughout 2nd stage until the end when it was Cat 2. tachycardia resolved with maternal fluid bolus during 2nd stage. Many position changes were used to help assist baby rotate through maternal pelvis. Sarkis alternated between coping well and having panic attacks during the pushing phase about the difficulty of pushing and the intensity of sensations. NSVB of baby at 0149, shoulders delivered easily. Baby was placed on maternal abdomen when Sarkis was ready to receive her. Apgars 7/9. IM pitocin, 10 mU given for AMTSL. They remained skin to skin while cord was cut and placenta was delivered. Placenta delivered spontaneously with maternal effor ts and appeared to be intact. 3 vessel cord clamped and cut by 7 minutes of life after cord pulsing had stopped. Cord blood collected for blood typing. Perineum inspected and second degree perineal laceration identified. Blood loss measured and estimated loss is 607 mL. Mom and baby left stable and is being initiated. Sarkis and Esequiel are thrilled to meet their baby. [place] ABEBE CNM, IBCLC Baby 1: gender: Female Presentation: vertex Position: Right Occiput Anterior Placenta delivery description: Spontaneous Cord Vessel Description: 3 Vessels score (1 min): 7 score (5 min): 9 Plan for aftercare: Routine care <Joceline Ellis CNM - Last Filed: 04/17/24 18:19> Labor & Delivery Narrative: Labor progressed well and Sarkis requested an exam because she was feeling tons of pressure and was found to be complete. At that time, ampicillin antibiotic was completed and gentamycin was running due to suspected intraamniotic infection. She began pushing at 2306. FHR was Cat 1 throughout 2nd stage until the end when it was Cat 2. Many position changes were used to help assist baby rotate through maternal pelvis. Sarkis alternated between coping well and having panic attacks during the pushing phase about the difficulty of pushing and the intensity of sensations. NSVB of baby at 0149, shoulders delivered easily. Baby was placed on maternal abdomen when Sarkis was ready to receive her. Apgars 7/9. They remained skin to skin while cord was cut and placenta was delivered. Placenta delivered spontaneously with maternal efforts and appeared to be intact. 3 vessel cord clamped and cut by 7 minutes of life after cord pulsing had stopped. Cord blood collected for blood typing. Perineum inspected and second degree perineal laceration identified. Blood loss measured and estimated loss is 607 mL. Mom and baby left stable and is being initiated. Sarkis and Esequiel are thrilled to meet their baby. [place] Shaffer DECK CADET, CNM, IBCLC [place] Baby 1: weight: 4.334 kg Plan for aftercare: Routine care (Continue Ampicillin x24 hours PP)
[2024-04-16] MEDS: AMPICILLIN 2,000 MG in SODIUM CHLORIDE 0.9% 100 ML 200 MG IV ×3 (06:25→18:21)
[2024-04-16] MEDS: LANOLIN OINT 7 GM 1 APPLIC TOP (10:27)
[2024-04-16] MEDS: IBUPROFEN 600 MG TABLET PO ×2 (10:28→18:22)
[2024-04-16 14:09] LABS: Add Manual Diff / Slide Review NO; Basophils Absolute Auto 0 /uL (0-100); Basophils Percent Auto 0.3 % (0-2); Eosinophils Absolute Auto 100 /uL (0-450); Eosinophils Percent Auto 0.9 % (2-4); Lymphocytes Absolute Auto 1700 /uL (1100-4500); Lymphocytes Percent Auto 10.6 % (25-40); Mean Corpuscular HGB Conc 33.4 % (30-36); Mean Corpuscular Hemoglobin 28.7 PG (26-34); Mean Corpuscular Volume 85.8 fL (80-100); Monocytes Absolute Auto 1000 /uL (0-900); Monocytes Percent Auto 6.3 % (3-14); Neutrophils Absolute Auto 13100 /uL (1500-7000); Neutrophils Percent Auto 81.9 % (50-75); Platelet Count 164 X10^3/uL (150-400); Red Blood Cell Count 3.84 X10^6/uL (4.0-5.2); Red Cell Distribution Width 15.5 % (11.6-14.8); White Blood Cell Count 15.9 X10^3/uL (4.5-11.0)
[2024-04-17] MEDS: IBUPROFEN 600 MG TABLET PO ×2 (00:29→06:27)
[2024-04-17] MEDS: ACETAMINOPHEN 325 MG TABLET 650 MG PO ×2 (00:29→06:28)
[2024-04-17] MEDS: AMPICILLIN 2,000 MG in SODIUM CHLORIDE 0.9% 100 ML 200 MG IV (00:29)
[2024-04-17 06:02] LABS: Add Manual Diff / Slide Review NO; Basophils Absolute Auto 0 /uL (0-100); Basophils Percent Auto 0.4 % (0-2); Eosinophils Absolute Auto 300 /uL (0-450); Eosinophils Percent Auto 2.4 % (2-4); Hemoglobin 10.4 g/dL (12.0-16.0); Lymphocytes Absolute Auto 2400 /uL (1100-4500); Lymphocytes Percent Auto 22.5 % (25-40); Mean Corpuscular HGB Conc 33.4 % (30-36); Mean Corpuscular Hemoglobin 28.7 PG (26-34); Mean Corpuscular Volume 85.8 fL (80-100); Monocytes Absolute Auto 800 /uL (0-900); Monocytes Percent Auto 7.7 % (3-14); Neutrophils Absolute Auto 7200 /uL (1500-7000); Platelet Count 133 X10^3/uL (150-400); Red Blood Cell Count 3.61 X10^6/uL (4.0-5.2); Red Cell Distribution Width 15.3 % (11.6-14.8); White Blood Cell Count 10.7 X10^3/uL (4.5-11.0)
--- NOTE | 2024-04-17 09:46 | P.DS_ITS ---
Discharge Providers Provider Date of admission: 04/15/24 12:17 Discharge Date: 04/17/24 Primary care physician: Gerardo ALBERT Provider Consults: 04/17/24 03:21 Consult to [place] Supervisor Routine Comment: Discharge provider: Joceline Ellis CNM Summary Hospital Course Date Patient Seen: 04/17/24 Time Patient Seen: 09:46 Diagnoses: Suspected Triple I Normal vaginal with 2nd degree perineal laceration Hospital Course: Admitted for late term active labor with SROM. Received an epidural in labor and antibiotics for suspected triple I. Had a NSVB with a second degree perineal laceration and a healthy baby girl. Antibiotics were continued for 24 hours PP. Otherwise routine course with her baby rooming in. PPD1 patient is voiding, ambulating and independently. Tolerating a general diet. Pain is well controlled with PO medication. Tolerating a general diet. Has had a BM without difficulty. is present and supportive. Eager for discharge to home this morning. Peripartum Data Delivery Method: Natural Vaginal Laceration Description: Vaginal - 2nd Degree Episiotomy description: None Procedures: O70.1 complications: none [place] 1: Gender: Female Disposition of : home Discharge Diagnosis (1) Del w/ 2 deg lac-unsp: Status: Acute (2) Intrapartum fever, delivered: Status: Acute Status at Discharge Cognitive/behavioral status at discharge: oriented and calm Functional status at discharge: independent ambulation Overall status at discharge: patient is progressing back to baseline Time Spent with Patient Time attestation: Total time spent providing and/or coordinating discharge services: Time spent: Less than 30 minutes Objective Labs 04/17/24 05:52 Labs: Laboratory Results - last 24 hr 04/16/24 04/17/24 14:03 05:52 WBC 15.9 H 10.7 RBC 3.84 L 3.61 L Hgb 11.0 L 10.4 L Hct 33.0 L 31.0 L MCV 85.8 85.8 MCH 28.7 28.7 MCHC 33.4 33.4 RDW 15.5 H 15.3 H Plt Count 164 133 L Neut % (Auto) 81.9 H 67.0 Lymph % (Auto) 10.6 L 22.5 L [place] % (Auto) 6.3 7.7 Eos % (Auto) 0.9 L 2.4 Baso % (Auto) 0.3 0.4 Neut # (Auto) 30243 H 7200 H Lymph # (Auto) 1700 2400 [place] # (Auto) 1000 H 800 Eos # (Auto) 100 300 Baso # (Auto) 0 0 Exam Vital Signs (past 8 hours): BP 114/56, HR 86bpm, RR 15/min, T 98.5F Temporal Other: Fundus firm at U-1, lochia light, no clots. Perineum well approximated. Psych Appearance: grossly normal and well kempt Mood: congruent mood Affect: normal affect Discharge Plan Discharge Plan Patient Disposition: Home Discharge orders & Medications Follow up/Referrals: ProviderGerardo [Primary Care Provider] - Joceline Ellis CNM [[employer] Tender] - (2 week and 6 week appointments scheduled and in Sarkis's email) Diet/Activity/Treatments Diet: Diet as Tolerated and Regular Activity: bed rest x 2 weeks, no heavy lifting for 4 weeks, pelvic rest x 6 weeks Skin/Wound/Dressing Care Report to your healthcare provider any signs of infection, such as:: chills, fever, increased pain, unusual drainage and unusual redness Visit Report/Discharge Packet Instructions: Depression Stand Alone Forms: Patient Portal/API, Stroke Signs & Symptoms Discharge Data Primary Care Provider: ProviderGerardo
[2024-04-17 12:30] VITALS: BP 114/56; PULSE 56; RESP 15; TEMP 36.9
== END 2024-04-17 12:25 | disposition home or self-care (01) | DRG 805 ==
PROVIDERS: Advanced Practice Midwife; Admitting Provider Nurse Practitioner Obstetrics & Gynecology; Referring Provider Nurse Practitioner Obstetrics & Gynecology; Visit Provider Nurse Practitioner Obstetrics & Gynecology
DX: O48.0 Post-term pregnancy (principal); O41.1230 Chorioamnionitis, third trimester, not applicable or unspecified; Z37.0 Single live birth; O63.1 Prolonged second stage (of labor); O76 Abnormality in fetal heart rate and rhythm complicating labor and delivery; Z3A.41 41 weeks gestation of pregnancy; O70.1 Second degree perineal laceration during delivery
CPT/HCPCS: 36415; 59050; 85025; 86850; 86900; 86901; G0379; J0136; J0290; J2405; J2590